=== PATIENT | female | born 1960 | race Caucasian/White ===

== ENCOUNTER → 2016-09-22 | Outpatient (CLI) | payer BC | LOC: MC.RAD 09:40 | DX: Z12.31 Encounter for screening mammogram for malignant neoplasm of breast (principal) ==

== ENCOUNTER → 2017-10-24 | Outpatient (CLI) | payer BC | LOC: MC.RAD 07:20 | DX: Z12.31 Encounter for screening mammogram for malignant neoplasm of breast (principal) ==

== ENCOUNTER → 2020-10-20 | Outpatient (CLI) | payer BC | LOC: MC.RAD 11:15 | DX: Z12.31 Encounter for screening mammogram for malignant neoplasm of breast (principal) ==

== ENCOUNTER → 2021-04-27 | Outpatient (CLI) | payer BC | LOC: COL.RAD 07:48 | DX: Z82.49 Family history of ischemic heart disease and other diseases of the circulatory system (principal) ==

== ENCOUNTER → 2021-11-09 | Outpatient (CLI) | payer BC | LOC: MC.RAD 07:43 | DX: Z12.31 Encounter for screening mammogram for malignant neoplasm of breast (principal); N63.21 Unspecified lump in the left breast, upper outer quadrant ==

== ENCOUNTER → 2021-11-11 | Outpatient (CLI) | payer BC | LOC: MC.RAD 09:56 | DX: N63.25 Unspecified lump in the left breast, overlapping quadrants (principal) ==

== ENCOUNTER → 2021-11-30 | Outpatient (CLI) | payer BC | LOC: MC.RAD 09:54 | DX: N63.20 Unspecified lump in the left breast, unspecified quadrant (principal) ==

== ENCOUNTER → 2022-12-28 | Outpatient (CLI) | payer BC | LOC: MC.RAD 08:30 | DX: Z12.31 Encounter for screening mammogram for malignant neoplasm of breast (principal) ==

== ENCOUNTER → 2023-09-04 | Outpatient (CLI) | payer BC ==
[~2023-09-04] MED LIST: ALLEGRA 180MG180 MG PO; CELEXA 20MG20 MG/TAB PO; CRESTOR 10MG10 MG PO; HYZAAR 50-12.1 UDTAB PO; MASON NATURAL1200 MG PO; MULTIPLE VITAMI1 TA5 PO; PROAIR HFA0.09 MG/AC IH; PROTONIX 40MG T40 MG PO; SYNTHROID0.112 MG/T PO; TRELEGY ELLIPT1 EAC1 IH; VITAMIN D 400400 IU PO
== END ==
LOC: COL.CARD 08:48
DX: R06.02 Shortness of breath (principal)

== ENCOUNTER 2023-10-05 07:06 | Day surgery (SDC) | payer BC ==
[~2023-10-05] VITALS: Ht 160 cm; Wt 97.5 kg
[~2023-10-05 07:06] MED LIST changes: -ALLEGRA 180MG180 MG PO; -CELEXA 20MG20 MG/TAB PO; -CRESTOR 10MG10 MG PO; -HYZAAR 50-12.1 UDTAB PO; +LR 1,000 ML IV SCH; -MASON NATURAL1200 MG PO; -MULTIPLE VITAMI1 TA5 PO; +Ondansetron 4 MG/2 ML VIAL IV PRN; -PROAIR HFA0.09 MG/AC IH; -PROTONIX 40MG T40 MG PO; -SYNTHROID0.112 MG/T PO; -TRELEGY ELLIPT1 EAC1 IH; -VITAMIN D 400400 IU PO
[2023-10-05] MEDS ORDERED: PROAIR HFA0.09 MG/AC IH (08:28)
[2023-10-05] MEDS ORDERED: VITAMIN D 400400 IU PO (08:29)
[2023-10-05] MEDS ORDERED: TRELEGY ELLIPT1 EAC1 IH (08:30)
[2023-10-05] MEDS ORDERED: CELEXA 20MG20 MG/TAB PO (08:30)
[2023-10-05] MEDS ORDERED: CRESTOR 10MG10 MG PO (08:30)
[2023-10-05] MEDS ORDERED: PROTONIX 40MG T40 MG PO (08:31)
[2023-10-05] MEDS ORDERED: HYZAAR 50-12.1 UDTAB PO (08:32)
[2023-10-05] MEDS ORDERED: MULTIPLE VITAMI1 TA5 PO (08:32)
[2023-10-05] MEDS ORDERED: SYNTHROID0.112 MG/T PO (08:33)
[2023-10-05] MEDS ORDERED: MASON NATURAL1200 MG PO (08:33)
[2023-10-05] MEDS ORDERED: ALLEGRA 180MG180 MG PO (08:34)
[2023-10-05] MEDS ORDERED: Lidocaine PF 2% (20 MG/ML) 5 ML VIAL ONE (08:56)
[2023-10-05] MEDS ORDERED: ePHEDrine 50 MG/ML VIAL ONE (09:05)
[2023-10-05 09:45] VITALS: BP 145/79; PULSE 92; TEMP 97.1
[2023-10-05] MEDS ORDERED: Albuterol/Ipratropium 3 MG-0.5 MG/3 ML Neb Soln IH ONE (09:45)
[2023-10-05 10:00] VITALS: BP 121/86; PULSE 87
[2023-10-05 10:15] VITALS: BP 126/66; PULSE 96
[2023-10-05 10:40] VITALS: BP 127/82; PULSE 83; TEMP 98.6
--- NOTE | 2023-10-05 11:17 | NUR ---
0945 Received report from BEAU Culver. Patient returned to [facility]. Patient is alert and answers questions appropriately, able to ambulate from the cart to the recliner with assistance. 0957 Patient given a muffin and juice for a PO challenge. Tolerated well. 1025 Dr. Dawson in room to update the patient on results and plan for care. 1035 Physician discharge instructions and printed patient educational materials reviewed with the patient. Questions invited and answered. 1040 Patient to lobby via wheelchair for a ride home with her in POV.
== END 2023-10-05 10:40 | disposition home or self-care (01) ==
LOC: SDCO 07:06
DX: Z12.11 Encounter for screening for malignant neoplasm of colon (principal); K51.40 Inflammatory polyps of colon without complications; K57.30 Diverticulosis of large intestine without perforation or abscess without bleeding; Z80.0 Family history of malignant neoplasm of digestive organs; I12.9 Hypertensive chronic kidney disease with stage 1 through stage 4 chronic kidney disease, or unspecified chronic kidney disease; N18.31 Chronic kidney disease, stage 3a; E66.01 Morbid (severe) obesity due to excess calories; Z68.41 Body mass index [BMI] 40.0-44.9, adult; Z79.899 Other long term (current) drug therapy
CPT/HCPCS: J2704; J7120